=== PATIENT | female | born 1985 | race Caucasian/White ===

== ENCOUNTER 2020-11-11 13:13 | Outpatient (CLI) | payer MEDICARE, MEDICAID, SELFPAY ==
--- NOTE | 2020-11-11 13:23 | US_ITS ---
WS: [id number] INDICATION: Thigh mass TECHNIQUE: Ultrasound soft tissue FINDINGS: Ultrasound soft tissue area of concern left medial thigh. In the area of concern, there is a suspected underlying mixed echogenicity soft tissue lipoma measuring approximately 6.0 x 4.0 cm. No other suspicious abnormalities. US/US soft tissue/extremity 22450 IMPRESSION: 1. Suspected lipoma in the area of concern measuring 6.0 x 4.0 cm. No other hsu spicious abnormalities. 2. If continued clinical concern, This could be further evaluated with MRI lef t thigh without and with gadolinium enhancement for better anatomic detail.
== END 2020-11-11 13:14 | disposition home or self-care (01) ==
LOC: US 13:16
PROVIDERS: PCP Nurse Practitioner Family; Visit Provider Nurse Practitioner Family
DX: R22.42 Localized swelling, mass and lump, left lower limb (principal)
CPT/HCPCS: 76882

== ENCOUNTER → 2020-12-20 10:30 | Outpatient (BNVA) | payer MEDICARE, MEDICAID, SELFPAY | PROVIDERS: PCP Nurse Practitioner Family; Visit Provider Obstetrics & Gynecology | DX: Z12.4 Encounter for screening for malignant neoplasm of cervix (principal) | CPT/HCPCS: 88175 ==

== ENCOUNTER → 2025-09-15 09:45 | Outpatient (BNVA) | payer MEDICARE, MEDICAID, SELFPAY | PROVIDERS: PCP Nurse Practitioner Family; Visit Provider Nurse Practitioner Family | DX: L20.89 Other atopic dermatitis (principal); D22.5 Melanocytic nevi of trunk | CPT/HCPCS: 99203 ==